=== PATIENT | male | born 1965 | race African-American/Black ===

== ENCOUNTER 2017-08-11 14:39 | Inpatient (IN) | payer SELFPAY ==
[2017-08-11] MEDS ORDERED: HYDROmorphone 2 MG/ML VIAL IV/SQ (15:30)
[2017-08-11] MEDS ORDERED: 0.9 % SODIUM CHLORIDE 10 ML DISP.SYRIN. IV (15:30)
[2017-08-11 15:49] LABS: ADD MAN DIFF? NO
[2017-08-11 15:53] LABS: BASO % 1 % (0-3); EOS % 0 % (0-3); HEMATOCRIT 41.5 % (39.0-53.0); HEMOGLOBIN 13.6 g/dL (13.0-17.5); LYMPH % 15 % (24-48); MEAN CORPUSCULAR HEMOGLOBIN 26 pg (25-35); MEAN CORPUSCULAR HGB CONC 33 g/dL (31-37); MEAN CORPUSCULAR VOLUME 80 fL (79-100); MONO % 15 % (0-9); NEUT # 4.4 x10^3uL (1.8-7.7); NEUT % 69 % (31-73); PLATELET COUNT 166 x10^3/uL (140-400); RED BLOOD COUNT 5.19 x10^6/uL (4.30-5.70); RED CELL DISTRIBUTION WIDTH 15.8 % (11.5-14.5); WHITE BLOOD COUNT 6.4 x10^3/uL (4.0-11.0)
[2017-08-11] MEDS: ACETAMINOPHEN 325 MG TABLET. PO (15:53)
[2017-08-11] MEDS: IV NORMAL SALINE 1000ML BAG 1,000 ML IV ×2 (15:53→17:04)
[2017-08-11] MEDS: ASPIRIN CHEWABLE 81 MG TABLET. PO (15:54)
[2017-08-11 16:14] LABS: ANION GAP 13 (6-14); BLOOD UREA NITROGEN 11 mg/dL (8-26); CALCIUM 9.5 mg/dL (8.5-10.1); CARBON DIOXIDE 27 mmol/L (21-32); CHLORIDE 96 mmol/L (98-107); CREATININE 1.2 mg/dL (0.7-1.3); GFR 76.6; GLUCOSE 105 mg/dL (70-99); POTASSIUM 3.9 mmol/L (3.5-5.1); SODIUM 136 mmol/L (136-145)
[2017-08-11 16:20] LABS: ALBUMIN 4.5 g/dL (3.4-5.0); ALK PHOS 83 U/L (46-116); ALT (SGPT) 18 U/L (16-63); AST (SGOT) 16 U/L (15-37); DIRECT BILIRUBIN 0.1 mg/dL (0.0-0.2); LIPASE 72 U/L (73-393); TOTAL BILIRUBIN 0.7 mg/dL (0.2-1.0); TOTAL PROTEIN 9.1 g/dL (6.4-8.2)
[2017-08-11 16:22] LABS: LACTIC ACID 1.9 mmol/L (0.4-2.0); TROPONINI < 0.017 ng/mL (0.000-0.055)
[2017-08-11 16:27] LABS: THYROID STIM HORMONE (TSH) 0.769 uIU/mL (0.358-3.74)
[2017-08-11 16:30] LABS: NT-PRO BNP 34 pg/mL (0-124)
[2017-08-11 16:30] LABS: CKMB INDEX 0.2 % (0-4); CKMB MASS 0.5 ng/mL (0.0-3.6); CREATINE KINASE 268 U/L (39-308)
[2017-08-11] MEDS ORDERED: AZITHROMYCIN 500 MG in IV NORMAL SALINE 250ML 250 ML IV (16:30)
[2017-08-11 16:47] LABS: D-DIMER 5.53 ug/mlFEU (0.00-0.50)
[2017-08-11] MEDS: AZITHRMYCN 500MG IVPB FOR OMNI 250 ML IV (17:05)
[2017-08-11] MEDS ORDERED: IOHEXOL 300 MG/ML 100ML VIAL. IV (17:15)
[2017-08-11] MEDS ORDERED: CONTRAST GIVEN MC (17:15)
[2017-08-11 17:29] LABS: INFLUENZA A PATIENT NEGATIVE (NEGATIVE); INFLUENZA B PATIENT NEGATIVE (NEGATIVE); OBC FLU VALID
[2017-08-11] MEDS ORDERED: MORPHINE SULFATE 2 MG/ML DISP.SYRIN. IV (23:45)
[2017-08-11 23:47] LABS: LACTIC ACID 1.1 mmol/L (0.4-2.0)
[2017-08-12] MEDS: ACETAMINOPHEN 325 MG TABLET. PO ×2 (00:05→20:32)
[2017-08-12 03:14] LABS: TROPONINI 0.026 ng/mL (0.000-0.055)
[2017-08-12 08:48] LABS: TROPONINI < 0.017 ng/mL (0.000-0.055)
[2017-08-12] MEDS: cefTRIAXone IV Push 1 GM VIAL. IVP (15:41)
[2017-08-12] MEDS: LACTOBACILLUS RHAMNOSUS GG 1 CAPSULE. PO (20:32)
[2017-08-13] MEDS: LACTOBACILLUS RHAMNOSUS GG 1 CAPSULE. PO ×2 (08:57→21:06)
[2017-08-13] MEDS: cefTRIAXone IV Push 1 GM VIAL. IVP ×2 (17:55)
[2017-08-14 05:15] LABS: ADD MAN DIFF? NO
[2017-08-14 05:20] LABS: BASO % 0 % (0-3); EOS # 0.1 x10^3/uL (0.0-0.7); EOS % 1 % (0-3); HEMATOCRIT 37.9 % (39.0-53.0); HEMOGLOBIN 12.4 g/dL (13.0-17.5); LYMPH # 1.4 x10^3/uL (1.0-4.8); LYMPH % 30 % (24-48); MEAN CORPUSCULAR HEMOGLOBIN 26 pg (25-35); MEAN CORPUSCULAR HGB CONC 33 g/dL (31-37); MEAN CORPUSCULAR VOLUME 80 fL (79-100); MONO # 0.7 x10^3/uL (0.0-1.1); MONO % 15 % (0-9); NEUT # 2.5 x10^3uL (1.8-7.7); NEUT % 53 % (31-73); PLATELET COUNT 145 x10^3/uL (140-400); RED BLOOD COUNT 4.74 x10^6/uL (4.30-5.70); RED CELL DISTRIBUTION WIDTH 15.5 % (11.5-14.5); WHITE BLOOD COUNT 4.7 x10^3/uL (4.0-11.0)
[2017-08-14 05:35] LABS: ANION GAP 10 (6-14); BLOOD UREA NITROGEN 14 mg/dL (8-26); CALCIUM 8.9 mg/dL (8.5-10.1); CARBON DIOXIDE 28 mmol/L (21-32); CHLORIDE 100 mmol/L (98-107); CREATININE 1.1 mg/dL (0.7-1.3); GFR 84.7; GLUCOSE 99 mg/dL (70-99); POTASSIUM 3.8 mmol/L (3.5-5.1); SODIUM 138 mmol/L (136-145)
[2017-08-14] MEDS: LACTOBACILLUS RHAMNOSUS GG 1 CAPSULE. PO (09:13)
[2017-08-14] MEDS: ACETAMINOPHEN 325 MG TABLET. PO (09:13)
== END 2017-08-14 13:30 | disposition home or self-care (01) | DRG 299 ==
LOC: ER 14:39 → ED HOLD 16:25 → 5 SOUTH 20:13
DX: I82.409 Acute embolism and thrombosis of unspecified deep veins of unspecified lower extremity (principal); J18.9 Pneumonia, unspecified organism; Z86.73 Personal history of transient ischemic attack (TIA), and cerebral infarction without residual deficits; Z83.3 Family history of diabetes mellitus
CPT/HCPCS: 36415; 71045; 71275; 80048; 80076; 82553; 83605; 83690; 83735; 83880; 84443; 84484; 85025; 85379; 87040; 87804; 87804-59; 93005; 93971; 97116-GP; 97162-GP; 97165-GO; 97530-GP; J0456; J0690; J0696; J2060; J7030